=== PATIENT | male | born 1975 | race Hispanic/Latino ===

== ENCOUNTER 2017-05-08 00:52 | Inpatient (IN) | payer OTHER ==
[~2017-05-08] VITALS: Ht 188 cm; Wt 108.4 kg
[~2017-05-08 00:52] MED LIST: NAPROSYN500 M1 PO
--- NOTE | 2017-05-08 00:58 | NUR ---
PT BIBA FROM HOME C/O "METHADONE WITHDRAWAL." PER EMS PT ON METHADONE PROGRAM AND HAS BEEN TRYING TO SELF DETOX X 6 DAYS. PT ALSO REPORTS DRINKING 5-6 NIPS OF ALCOHOL TONIGHT.
--- NOTE | 2017-05-08 00:59 | NUR ---
WANDED BY SECURITY AT THIS TIME
--- NOTE | 2017-05-08 01:32 | NUR ---
AT BEDSIDE TO LUZ MARINA
[2017-05-08 01:34] LABS: HEMATOCRIT 47.5 % (42-52); MEAN CORPUSCULAR HGB 30.9 PG (27.0-31.0); MEAN CORPUSCULAR HGB CONC 35.5 G/DL (33.0-37.0); MEAN CORPUSCULAR VOLUME 87.1 FL (80.0-94.0); MEAN PLATELET VOLUME 7.5 FL (7.4-10.4); PLATELET COUNT 206 /CUMM (130-400); RBC DISTRIBUTION WIDTH 16.2 % (11.5-14.5); RED BLOOD CELL CT 5.45 /CUMM (4.70-6.10); WHITE BLOOD CELL COUNT 5.9 /CUMM (4.8-10.8)
--- NOTE | 2017-05-08 01:39 | ED PSYCHIATRIC COMPLAINT ---
History of Present Illness General Chief Complaint: ETOH/Drug Related Complaint Stated Complaint: WANTS METHADONE DETOX, +ETOH PER EMS Source: patient, old records Exam Limitations: poor historian, intoxication Vital Signs & Intake/Output Vital Signs & Intake/Output Vital Signs Date Time Temp Pulse Resp B/P B/P Pulse O2 O2 Flow FiO2 Mean Ox Delivery Rate 05/08 1213 97.1 108 18 164/80 97 Room Air 05/08 1136 96.8 130 18 163/88 05/08 1134 96.8 130 18 163/88 96 Room Air 05/08 1021 96.7 122 18 168/89 05/08 1019 96.2 130 16 168/89 96 05/08 0831 97.7 110 18 160/104 05/08 0830 97.7 110 18 160/104 95 Room Air 05/08 0602 97.9 112 20 141/84 95 Room Air 05/08 0318 97.8 91 20 146/81 99 Nasal 2.0L Cannula 05/08 0158 Room Air 05/08 0115 97.5 117 20 157/101 94 Room Air Allergies Coded Allergies: venom-honey bee (BEE VENOM (HONEY BEE)) (Severe, THROAT CLOSES 08/21/16) Triage Note: PT BIBA FROM HOME C/O "METHADONE WITHDRAWAL." PER EMS PT ON METHADONE PROGRAM AND HAS BEEN TRYING TO SELF DETOX X 6 DAYS. PT ALSO REPORTS DRINKING 5-6 NIPS OF ALCOHOL TONIGHT. Triage Nurses Notes Reviewed? yes HPI: Patient presents for evaluation of methadone detox. Patient states he has been on methadone for 6 days due to tach pain. It is unclear if he is taking the methadone for treatment of the back pain or the methadone is the result of an addiction to prior pain medications. He states he also has been drinking "a lot " today. History is very limited as the patient tends to nod off to sleep and answers questions incompletely. (GILLES KONG,ESTRELLA Headley) Reconcile Medications Fluoxetine HCl 20 MG CAPSULE 1 CAP PO DAILY MENTAL HEALTH (Reported) Lisdexamfetamine Dimesylate (Vyvanse) 60 MG CAPSULE 1 CAP PO QAM MENTAL HEALTH (Reported) Methadone HCl 10 MG/ML ORAL.CONC 20 MG PO DAILY MAINTENCE (Reported) (LITZY KONG,LENIN) Past History Travel History Traveled to [place] past 21 day No Medical History Any Pertinent Medical History? 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 No (GILLES KONG,ESTRELLA Headley) Review of Systems Review of Systems Constitutional: Reports: no symptoms. EENTM: Reports: no symptoms. Respiratory: Reports: no symptoms. Cardiovascular: Reports: no symptoms. GI: Reports: no symptoms. Genitourinary: Reports: no symptoms. Musculoskeletal: Reports: no symptoms. Skin: Reports: no symptoms. Neurological/Psychological: Reports: no symptoms. Hematologic/Endocrine: Reports: no symptoms. Immunologic/Allergic: Reports: no symptoms. All Other Systems: Reviewed and Negative (GILLES KONG,ESTRELLA Headley) Physical Exam Physical Exam General Appearance: SEE BELOW Neurological/Psychiatric: SEE BELOW Comments: General: Alert, calm, inconsistently cooperative due to somnolence and clinical intoxication Head: Normocephalic, atraumatic Eyes: Normal inspection, pupils midpoint and reactive Ears: Normal inspection Nose: Normal inspection Throat: Moist mucosa Neck: Supple, no goiter Heart: Rapid Regular rate and rhythm, no murmurs rubs or gallops Lungs: Clear to auscultation bilaterally with good air entry Abdomen: Soft nontender nondistended, normal bowel sounds Chest: Nontender Extremities: Normal range of motion grossly, mild tremors present, no cyanosis clubbing or edema of the upper extremities Neurologic: cranial nerves II through XII grossly intact, paucity of speech ( exam limited due to clinical intoxication) Psychiatric: No apparent delusions or hallucinations, no pressured speech or thought blocking (exam limited due to clinical intoxication) SAD PERSONS Done? patient not suicidal (GILLES KONG,ESTRELLA Headley) Progress Differential Diagnosis: drug intoxication, drug overdose Plan of Care: Orders Procedure Date/time Status Regular Diet 05/08 D Active Regular Diet 05/08 B Complete Admit to inpatient 05/08 1206 Active Pathway - chart 05/08 1201 Active Code Status 05/08 1201 Active Patient Data 05/08 1145 Active Pathway - chart 05/08 1059 Active CASE MANAGEMENT CONSULT 05/08 0857 Active CIWA 05/08 0831 Active Patient Safety Monitor 05/08 0145 Active Add-on Test (ER Only) 05/08 0138 Active ETHANOL 05/08 012 Complete URINE DRUG SCREEN FOR ER ONLY 05/08 012 Complete COMPREHENSIVE METABOLIC PANEL 05/08 012 Complete CBC WITHOUT DIFFERENTIAL 05/08 121 Complete House Staff 05/08 UNK Active VTE Mechanical Prophylaxis 05/08 UNK Active Vital Signs 05/08 UNK Active CIWA 05/08 UNK Active SOCIAL WORK CONSULT 05/08 UNK Active Current Medications Sig/Jose Alfredo Start time Last Medication Dose Stop Time Status Admin Lorazepam 1 MG Q12H 05/10 0000 UNVr (Ativan) 05/10 1201 Lorazepam 1.5 MG Q6 05/09 0600 UNVr (Ativan) 05/09 1801 Heparin Sodium 5,000 UNIT Q8 05/08 1400 UNVr (Porcine) Lorazepam 1 MG Q1 PRN 05/08 1219 UNVr (Ativan) Fluoxetine HCl 20 MG DAILY 05/08 1204 UNVr (Prozac) Lorazepam 2 MG Q6 05/08 1200 UNVr 05/08 (Ativan) 05/09 0001 1218 Cyanocobalamin/ 1 BAG DAILY 05/08 1059 UNVr 05/08 Thiamine/Pyridoxine 05/10 1759 1114 (Vitamin in I.V.) Sodium Chloride 1,000 ML (Normal Saline 0.9%) Folic Acid 1 MG DAILY 05/08 1059 UNVr 05/08 (Folic Acid) 05/10 1001 1114 Multivitamins 1 TAB DAILY 05/08 1059 UNVr 05/08 (Theragran Vitamins) 1114 Thiamine HCl 100 MG DAILY 05/08 1059 UNVr 05/08 (Vitamin B1) 05/10 1001 1114 Laboratory Tests 05/08/17 0211: Urine Opiates Screen < 100.00, Methadone Screen > 735 H, Barbiturate Screen < 60, Ur Phencyclidine Scrn < 6.00, Amphetamines Screen < 100, U Benzodiazepines Scrn < 85, Urine Cocaine Screen < 50, Urine Cannabis Screen < 5.00 05/08/17 0125: Anion Gap 14, Estimated GFR > 60, BUN/Creatinine Ratio 14.5, Glucose 112 H, Calcium 8.2 L, Total Bilirubin 2.1 H, AST 526 H, ALT 158 H, Alkaline Phosphatase 193 H, Total Protein 8.6 H, Albumin 3.8, Globulin 4.8 H, Albumin/ Globulin Ratio 0.8 L, CBC w Diff MAN DIFF ORDERED, RBC 5.45, MCV 87.1, MCH 30.9 , RDW 16.2 H, MPV 7.5, Segmented Neutrophils 29 L, Lymphocytes 68 H, Monocytes 3, Platelet Estimate ADEQUATE, Poikilocytosis 2+, PUBS MCHC 35.5, Serum Alcohol 406.0 10:23 AM HEART RATE 116 BPM. PATIENT TREMULOUS. NS, IV ATIVAN ORDERED. 11:01 am patient with visual hallucinations. po ativan ordered. case management paged. 11:20 AM D/W ANA FROM CASE MANAGMENT. APPROVED FOR INPATIENT DETOX. PATIENT TACHYCARDIC, VISUAL HALLUCINATIONS, REQUIRING IV AND PO ATIVAN. (LENIN ORDAZ MD) Comments: 05/08/2017 4:53:09 AM Luis Enrique overall clinical condition has improved. He is currently watching TV and seems to be rather enjoying himself, laughing frequently. 05/08/2017 7:21:42 AM patient signed out to Dr. Ordaz at shift change manager. (GILLES KONG,ESTRELLA Headley) Departure Departure Disposition: STILL A PATIENT Condition: Stable Referrals: PATIENT HAS NO PRIMARY CARE DR (PCP/Family) Departure Forms: Customer Survey General Discharge Information (GILLES KONG,ESTRELLA Headley) Departure Time of Disposition: 1127 Clinical Impression Primary Impression: Alcohol withdrawal delirium Secondary Impressions: Alcohol intoxication, Methadone use disorder, mild Admission Note Spoke With: HAYDEN ARECHIGA MD Documentation of Exam: Documentation of any treatments & extenuating circumstances including Concerns Regarding Discharge (functional status, medication knowledge or non-compliance, living conditions, etc.) that warrant an admission rather than observation: (LENIN ORDAZ MD) Critical Care Note Critical Care Note Critical Care Time: 30-74 min (LENIN ORDAZ MD)
--- NOTE | 2017-05-08 02:03 | NUR ---
NS INFUSING PER EMAR.
--- NOTE | 2017-05-08 02:09 | NUR ---
PT O2 SAT DROPPING TO 89-91% WHILE SLEEPING. PLACED ON 2L NC FOR SUPPORT, 02 SAT IMPROVED TO 98%.
--- NOTE | 2017-05-08 04:16 | NUR ---
PT AWAKE, ALERT AND WATCHING TV. PROVIDED WITH WATER REQUESTED.
--- NOTE | 2017-05-08 05:55 | NUR ---
PT ASSISTED TO USE URINAL. 300CCS OUTPUT.
--- NOTE | 2017-05-08 06:35 | NUR ---
PTS CALLED ADELAIDA AND WOULD LIKE TO BE UPDATED ([phone]) ([phone])
--- NOTE | 2017-05-08 07:33 | NUR ---
PT HAD BREAKFAST NO DISTRESS NOTED
--- NOTE | 2017-05-08 07:39 | NUR ---
PT STATES HE WOULD LIKE DETOX FROM ETOH STATES HE HAS BEEN DRINKING HEAVILY FOR THE PAST MONTH TO TRY AND GET OFF THE METHADONE PT'S CURRENT DOSE IS 20MG DAILY DR. LITZY SHIPLEY PT GIVEN WATER PITCHER PER HIS REQUEST
[2017-05-08] MEDS ORDERED: VYVANSE60 M1 PO (07:57)
[2017-05-08] MEDS ORDERED: FLUOXETINE HCL20 M2 PO (07:57)
[2017-05-08] MEDS ORDERED: METHADONE10 MG/1 M2 PO (07:58)
[2017-05-08 08:31] VITALS: BP 160/104
--- NOTE | 2017-05-08 08:34 | NUR ---
PT RESTING AT THIS TIME
--- NOTE | 2017-05-08 08:41 | NUR ---
SPOKE WITH SPOUSE AWARE OF PROCESS
--- NOTE | 2017-05-08 09:39 | NUR ---
SPOKE WITH APPT. GRADY IN [place] PT WAS LAST SEEN ON March THEY STATE WAS GIVEN TWO BOTTLES OF METHADONE THEN AT 30MG PT TOLD THIS NURSE HE HAS BEEN TRYING TO WEEN HIMSELF OFF OF IT BECAUSE HE IS TIRED OF BEING ON IT. DR. MCGHEE AWARE PT MEDICATED WITH METHATDONE 20MG PER HIS REQUEST
[2017-05-08 10:21] VITALS: BP 168/89
--- NOTE | 2017-05-08 10:29 | NUR ---
PT MEDICATED WITH ATIVAN FLUIDS INFUSING DIRECTED
--- NOTE | 2017-05-08 10:44 | NUR ---
FOOD TRAY ORDERED FOR PT STILL HUNGRY WAS UNABLE TO EAT HIS BREAKFAST
--- NOTE | 2017-05-08 11:00 | NUR ---
PT GIVEN TWO PO ATIVAN PT HALLUCINATING AT THIS TIME ALSO GIVEN FOOD TRAY
--- NOTE | 2017-05-08 11:15 | NUR ---
BANANA BAG INFUSING DIRECTED PT EATING LUNCH TRAY
--- NOTE | 2017-05-08 11:41 | NUR ---
SPOUSE CALLED AND UPDATED ON PT'S ADMISSION
--- NOTE | 2017-05-08 11:59 | History & Physical ---
UL ERNESTINE KONG,[facility] 05/08/17 1159: General Information and HPI MD Statement: I have seen and personally examined MARILYNN TRIANA and documented this H&P. The patient is a 41 year old M who presented with a patient stated chief complaint of [alcohol detox]. Source of Information: patient Exam Limitations: clinical condition History of Present Illness: 41-year-old man with past medical history significant for attention deficit hyperactivity disorder, alcohol dependence, history of depression, history of narcotic dependence on methadone, came to emergency department for alcohol and Methadone detox. Patient was unable to provide the history in detail because of his intoxicated state. According to the patient he was on 45 mg of by mouth methadone but because of his financial constraints he was unable to follow-up with [facility]. Therefore he started cutting down on its methadone on its own and was taking 20 mg. Along with that for the last 2 weeks he also started drinking and he was taking 6 Nips of 100% vodka. Review of system was negative for any acute headaches, acute visual changes, chest pain, shortness of breath, palpitations, nausea, vomiting, abdominal pain, diarrhea, constipation, dysuria, rash, fever, cough, suicidal ideation, depression or bilateral lower extremity edema. U tox is positive for methadone greater than 735 and serum alcohol of 406 Allergies/Medications Allergies: Coded Allergies: venom-honey bee (BEE VENOM (HONEY BEE)) (Severe, THROAT CLOSES 08/21/16) Home Med list Fluoxetine HCl 20 MG CAPSULE 1 CAP PO DAILY MENTAL HEALTH (Reported) Lisdexamfetamine Dimesylate (Vyvanse) 60 MG CAPSULE 1 CAP PO QA MENTAL HEALTH (Reported) Methadone HCl 10 MG/ML ORAL.CONC 20 MG PO DAILY MAINTENCE (Reported) Compliance With Home Meds: FAIR Past History Travel History Traveled to [place] past 21 day No Medical History Neurological: NONE EENT: NONE Cardiovascular: NONE Respiratory: NONE Gastrointestinal: NONE Hepatic: NONE Renal: NONE Musculoskeletal: NONE Psychiatric: NONE Endocrine: NONE Blood Disorders: NONE Cancer(s): 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 Ambulation: independent IADLs Independent: shopping, housework, finances, food prep, telephone, transportation , medication admin. Review of Systems Review of Systems Constitutional: Denies: chills, fever. EENTM: Denies: visual changes. Cardiovascular: Denies: chest pain, palpitations. Respiratory: Denies: cough, short of breath. GI: Denies: abdominal pain, nausea, vomiting. Genitourinary: Denies: dysuria. Musculoskeletal: Denies: back pain. All Other Systems: Reviewed and Negative Exam & Diagnostic Data Last 24 Hrs of Vital Signs/I&O Vital Signs Date Time Temp Pulse Resp B/P B/P Pulse O2 O2 Flow FiO2 Mean Ox Delivery Rate 05/08 1136 96.8 130 18 163/88 05/08 1134 96.8 130 18 163/88 96 Room Air 05/08 1021 96.7 122 18 168/89 05/08 1019 96.2 130 16 168/89 96 05/08 0831 97.7 110 18 160/104 05/08 0830 97.7 110 18 160/104 95 Room Air 05/08 0602 97.9 112 20 141/84 95 Room Air 05/08 0318 97.8 91 20 146/81 99 Nasal 2.0L Cannula 05/08 0158 Room Air 05/08 0115 97.5 117 20 157/101 94 Room Air Intake & Output 05/08 1600 05/08 0800 05/08 0000 Intake Total 0 Output Total 300 Balance -300 Intake, Oral 0 Output, Urine 300 Patient 175 lb Weight Weight Estimated Measurement Method Physical Exam General Appearance Cooperative, No Acute Distress, DROWSY HEENT Atraumatic Neck Supple Cardiovascular Regular Rate, Normal S1, Normal S2 Lungs Clear to Auscultation, Normal Air Movement Abdomen Normal Bowel Sounds, Soft, No Tenderness Neurological Normal Speech, Normal Tone, Sensation Intact Extremities No Edema Last 24 Hrs of Labs/Jeffrey: Laboratory Tests 05/08/17 0211: Urine Opiates Screen < 100.00, Methadone Screen > 735 H, Barbiturate Screen < 60, Ur Phencyclidine Scrn < 6.00, Amphetamines Screen < 100, U Benzodiazepines Scrn < 85, Urine Cocaine Screen < 50, Urine Cannabis Screen < 5.00 05/08/17 0125: Anion Gap 14, Estimated GFR > 60, BUN/Creatinine Ratio 14.5, Glucose 112 H, Calcium 8.2 L, Total Bilirubin 2.1 H, AST 526 H, ALT 158 H, Alkaline Phosphatase 193 H, Total Protein 8.6 H, Albumin 3.8, Globulin 4.8 H, Albumin/ Globulin Ratio 0.8 L, CBC w Diff MAN DIFF ORDERED, RBC 5.45, MCV 87.1, MCH 30.9 , RDW 16.2 H, MPV 7.5, Segmented Neutrophils 29 L, Lymphocytes 68 H, Monocytes 3, Platelet Estimate ADEQUATE, Poikilocytosis 2+, PUBS MCHC 35.5, Serum Alcohol 406.0 Assessment/Plan Assessment: 41-year-old man with past medical history significant for attention deficit hyperactivity disorder, alcohol dependence, history of depression, history of narcotic dependence on methadone, came to emergency department for alcohol and Methadone detox. Patient has about 2 weeks of Alcohol intake, 100% vodka. Symptoms of tremors. Serum Alcohol level 406. No previous history of DT, detox or withdrwal seizures - Admit to Gen Med - Vitals Q Shift - Give PRN IV Ativan. - CIWA Protocol - Banana Bag in D5NS at 75cc per hour - Replete Lytes - Give Multivitamins, B12 and Folate - Psychiatry consult - Social work consult Chronic narcotic dependence on methadone Well confirm the dose from [facility] Patient is on subcutaneous heparin for DVT prophylaxis Patient is full code Patient is on regular diet Patient is on pain management As Ranked By This Provider Problem List: 1. Alcohol intoxication Core Measures/Miscellaneous Acute Coronary Syndrome ACS Diagnosis: No Cerebrovascular Accident CVA/TIA Diagnosis: No Congestive Heart Failure CHF Diagnosis: No VTE (View Protocol) VTE Risk Factors: [facility] prophylaxis d/t: No contraindications No VTE Pharm Prophylaxis d/t: No contraindications VTE Diagnosis: No VTE Type: NONE VTE Confirmed by (Test): NONE Sepsis (View Protocol) Severe Sepsis Present: No Septic Shock Septic Shock Present: No Miscellaneous Documentation Attending Case Discussed With: HAYDEN ARECHIGA MD Primary Care Physician: PATIENT HAS NO PRIMARY CARE DR Patient sees these Specialists Pain management at [facility] Level of Patient Care: General Medicine JERRELL CHURCHILL 05/08/17 1356: Attending Review Statement Attending Statement Attending MD Statement: examined this patient, discuss w/resident/PA/MAIL DISTRIBUTOR, agreed w/resident/PA/MAIL DISTRIBUTOR, discussed with family, reviewed EMR data (avail), discussed with nursing, discussed with case mgmt, reviewed images, amended to note Attending Assessment/Plan: 41 o/m with alcohol abuse comes with alcohol intoxication JE 400s in admission, ativan protocol as per CIWA, clonidine prn for bp control, thiamine . folic acid , Psychiatry consult, Social work consult. gi/dvt prophyalxis full code.
--- NOTE | 2017-05-08 12:58 | NUR ---
PT HAS BED ASSIGNMENT 231-1. RN NOTIFIED.
--- NOTE | 2017-05-08 13:26 | NUR ---
REPORT GIVEN TO FLOOR
[2017-05-08 20:03] VITALS: BP 142/90
[2017-05-09] VITALS: BP 160/80
[2017-05-09 04:00] VITALS: BP 160/100
--- NOTE | 2017-05-09 07:39 | PN- Housestaff ---
SERGEY SINHA MD,IRVIN 05/09/17 0739: Subjective Follow-up For: Alcohol withdrawal Methadone dependence Review of Systems Constitutional: Denies: chills, fever. EENTM: Denies: visual changes. Cardiovascular: Denies: chest pain, palpitations. Respiratory: Denies: cough, short of breath. Gastrointestinal: Denies: abdominal pain, nausea, vomiting. Genitourinary: Denies: discharge. Objective Last 24 Hrs of Vital Signs/I&O Vital Signs Date Time Temp Pulse Resp B/P B/P Pulse O2 O2 Flow FiO2 Mean Ox Delivery Rate 05/09 0400 98.6 116 20 160/100 95 Room Air 05/09 0000 98.6 119 20 160/80 99 Room Air 05/08 2003 98.5 95 19 142/90 93 Room Air 05/08 1329 97.7 97 16 158/83 98 Room Air 05/08 1213 97.1 108 18 164/80 97 Room Air 05/08 1136 96.8 130 18 163/88 05/08 1134 96.8 130 18 163/88 96 Room Air 05/08 1021 96.7 122 18 168/89 05/08 1019 96.2 130 16 168/89 96 05/08 0831 97.7 110 18 160/104 05/08 0830 97.7 110 18 160/104 95 Room Air Intake & Output 05/09 0800 05/09 0000 05/08 1600 Intake Total 700 2000 Output Total 1850 850 Balance -1150 1150 Intake, IV 500 2000 Intake, Oral 200 Output, Urine 1850 850 Patient 240 lb Weight Physical Exam General Appearance: Alert, Oriented X3, Cooperative HEENT: Atraumatic Cardiovascular: Regular Rate, Normal S1, Normal S2, No Murmurs Lungs: Clear to Auscultation, Normal Air Movement Abdomen: Normal Bowel Sounds, Soft, No Tenderness Extremities: No Edema Current Medications: Current Medications Sig/Jose Alfredo Start time Last Medication Dose Route Stop Time Status Admin Acetaminophen 650 MG Q6 PRN 05/08 1600 DC PO Cyanocobalamin/ 1 BAG DAILY 05/08 1059 AC 05/08 Thiamine/Pyridoxine IV 05/10 1759 1114 Sodium Chloride 1,000 ML Fluoxetine HCl 20 MG DAILY 05/08 1204 AC 05/08 PO 1238 Folic Acid 0 .STK-MED ONE 05/08 1109 DC PO Folic Acid 1 MG DAILY 05/08 1059 DC 05/08 PO 05/10 1001 1114 Heparin Sodium 5,000 UNIT Q8 05/08 1400 AC 05/09 (Porcine) SC 0618 Lorazepam 1 MG Q12H 05/10 0000 AC PO 05/10 1201 Lorazepam 1.5 MG Q6 05/09 0600 AC 05/09 PO 05/09 1801 0615 Lorazepam 0 .STK-MED ONE 05/08 1219 DC PO Lorazepam 1 MG Q1 PRN 05/08 1219 AC IV Lorazepam 2 MG Q6 05/08 1200 DC 05/08 PO 05/09 0001 2337 Lorazepam 0 .STK-MED ONE 05/08 1103 DC PO Lorazepam 2 MG ONCE ONE 05/08 1100 DC 05/08 PO 05/08 1101 1101 Lorazepam 2 MG Q2P PRN 05/08 1100 DC IV Lorazepam 1 MG Q2P PRN 05/08 1100 DC IV Lorazepam 0 .STK-MED ONE 05/08 1031 DC .ROUTE Lorazepam 2 MG ONE ONE 05/08 1030 DC 05/08 IV 05/08 1031 1029 Methadone HCl 20 MG ONCE ONE 05/08 0945 DC 05/08 PO 05/08 0946 0959 Methadone HCl 0 .STK-MED ONE 05/08 0944 DC PO Metoprolol Tartrate 5 MG ONCE ONE 05/08 1145 DC 05/08 IV 05/08 1146 1136 Metoprolol Tartrate 0 .STK-MED ONE 05/08 1139 DC IV Morphine Sulfate 1 MG Q6P PRN 05/08 1800 AC IV Multivitamins 0 .STK-MED ONE 05/08 1109 DC PO Multivitamins 1 TAB DAILY 05/08 1059 DC 05/08 PO 1114 Oxycodone HCl 5 MG Q6P PRN 05/08 1800 AC PO Sodium Chloride 1,000 ML BOLUS ONE 05/08 1030 DC 05/08 IV 05/08 1129 1029 Thiamine HCl 0 .STK-MED ONE 05/08 1111 DC .ROUTE Thiamine HCl 0 .STK-MED ONE 05/08 1109 DC PO Thiamine HCl 100 MG DAILY 05/08 1059 DC 05/08 PO 05/10 1001 1114 Last 24 Hrs of Lab/Jeffrey Results Last 24 Hrs of Labs/Mics: Laboratory Tests 05/09/17 0705: Sodium Pending, Potassium Pending, Chloride Pending, Carbon Dioxide Pending, Anion Gap Pending, BUN Pending, Creatinine Pending, BUN/Creatinine Ratio Pending , Magnesium Pending, Total Bilirubin Pending, Direct Bilirubin Pending, AST Pending, ALT Pending, Alkaline Phosphatase Pending, Total Protein Pending, Albumin Pending, CBC w Diff Pending, WBC Pending, RBC Pending, Hgb Pending, Hct Pending, MCV Pending, MCH Pending, RDW Pending, Plt Count Pending, MPV Pending, PUBS MCHC Pending Orders CIWA Score (last 24 hrs): 0, 0, 0 Lines/Diet/Fluids Lines: peripheral lines Restraints: none Assessment/Plan Assessment: 41-year-old man with past medical history significant for attention deficit hyperactivity disorder, alcohol dependence, history of depression, history of narcotic dependence on methadone, came to emergency department for alcohol and Methadone detox. Patient has about 2 weeks of Alcohol intake, 100% vodka. Symptoms of tremors. Serum Alcohol level 406. No previous history of DT, detox or withdrwal seizures - Vitals Q Shift - Give PRN IV Ativan. - CIWA Protocol - Banana Bag in D5NS at 75cc per hour - Replete Lytes - Give Multivitamins, B12 and Folate - Psychiatry consult - Social work consult Chronic narcotic dependence on methadone Confirm the dose from [facility] Patient is on subcutaneous heparin for DVT prophylaxis Patient is full code Patient is on regular diet Patient is on pain management Problem List: 1. Alcohol intoxication 2. Alcohol withdrawal delirium Pain Ratin Pain Location: NA Pain Goal: Pain 4 or less Pain Plan: Continue current pain medications Tomorrow's Labs & Rationales: BEP if electrolyte abnormalities JERRELL CHURCHILL 05/09/17 0916: Attending MD Review Statement Attending Statement Attending MD Statement: examined this patient, discuss w/resident/PA/HOSE TUBING BACKER, agreed w/resident/PA/HOSE TUBING BACKER, discussed with family, reviewed EMR data (avail), discussed with nursing, discussed with case mgmt, reviewed images, amended to note Attending Assessment/Plan: 41 o/m with alcohol abuse comes with alcohol intoxication JE 400s in admission, ativan protocol as per CIWA, clonidine prn for bp control, thiamine . folic acid , Psychiatry consult, Social work consult. gi/dvt prophyalxis full code.
[2017-05-09 08:00] VITALS: BP 160/100
[2017-05-09 08:07] LABS: MEAN CORPUSCULAR VOLUME 86.5 FL (80.0-94.0); PLATELET COUNT 111 /CUMM (130-400); RBC DISTRIBUTION WIDTH 16.4 % (11.5-14.5); WHITE BLOOD CELL COUNT 4.3 /CUMM (4.8-10.8)
[2017-05-09 09:39] LABS: MEAN CORPUSCULAR HGB 28.8 PG (27.0-31.0); MEAN CORPUSCULAR HGB CONC 32.9 G/DL (33.0-37.0)
--- NOTE | 2017-05-09 14:44 | NUR ---
BP 158/110, PULSE 123, DR.UL SINHA NOTIFIED, CLONIDINE GIVEN NOW PER .
[2017-05-09 14:48] VITALS: BP 158/110
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
--- NOTE | 2017-05-09 16:27 | NUR ---
Referral received this am via electronic order filler. The laeks tis a 41 year old man, admitted to the hospital at noontime yesterday. Patient admitted for alcohol and methadone detox. Patient had been participating in a methadone program at [facility] in [place], but was struggling with transportation there as logisticare had him using public transportation and it was a 4 hour block of time to and from. He lost his priviledges and needed to start going every day....Spoke with patients this am who reports that patient had an appointment at a suboxone provider in [place] (either today or yesterday). I encouraged her to call that provider and reschedule appointment since our suboxone IOP is closed. Social work to follow and meet with patient and assist with appropriate discharge planning.
[2017-05-09 18:00] VITALS: BP 138/60
[2017-05-09 22:00] VITALS: BP 142/90
--- NOTE | 2017-05-09 23:04 | NUR ---
LATE ENTRY FOR 1999: PT STATING THAT HE WISHES TO GO HOME, ON THE PHONE WITH HIS AT THIS TIME, HANDED THIS NURSE THE PHONE. ASKING THIS NURSE ABOUT PT'S DOSE OF METHADONE "WHY WASNT IT GIVEN TODAY? HE GOT 20 MG YESTERDAY AND SHOULD BE GETTING SOME TODAY"- INFORMED THAT I WOULD SPEAK TO THE CLASSIFIER OPERATOR REGARDING THIS - CALL PLACED TO CLASSIFIER OPERATOR LENORE, WHO STATED THAT PLAN IS TO HOLD METHADONE FOR TODAY. CLASSIFIER OPERATOR AND MOD UP TO SPEAK TO PT AND AT THIS TIME REGARDING PLAN OF CARE. PT STATING " I AM ANXIOUS AND I JUST WANT TO BE HOME WITH MY KIDS" AFTER GOING OVER PLAN TO STAY IN HOSPITAL, FOLLOW ATIVAN TAPER AND CIWA, PT APPEARED MORE CALM AND AGREED TO STAY. ATIVAN IV GIVEN PER CIWA. BED ALARM REMAINS IN PLACE. SAFETY PRECAUTIONS MAINTAINED. AT THIS TIME PT IS NOT PAPERED, BUT IF PT BEGINS TO STATE THAT HE WANTS TO LEAVE AMA, CALL SHOULD BE PLACED TO PSYCH TO DETERMINE IF PT CAN LEAVE AMA OR NOT.
--- NOTE | 2017-05-09 23:08 | NUR ---
CALL PLACED TO GENERAL MAINTENANCE TECHNICIAN AT THIS TIME FOR OFFICE SUPPORT ASSISTANT ORDER, PT CONTINUES TO ATTEMPT OOB AND IS HIGH FALL RISK. BED ALARM IN PLACE. ATIVAN GIVEN PER CIWA.
[2017-05-10] VITALS (10 sets, daily range): BP systolic 140–166; BP diastolic 86–110
[2017-05-10 07:58] LABS: HEMATOCRIT 38.4 % (42-52); MEAN CORPUSCULAR HGB 29.8 PG (27.0-31.0); MEAN CORPUSCULAR HGB CONC 34.3 G/DL (33.0-37.0); MEAN CORPUSCULAR VOLUME 86.8 FL (80.0-94.0); MEAN PLATELET VOLUME 9.7 FL (7.4-10.4); PLATELET COUNT 90 /CUMM (130-400); RED BLOOD CELL CT 4.42 /CUMM (4.70-6.10); WHITE BLOOD CELL COUNT 4.2 /CUMM (4.8-10.8)
--- NOTE | 2017-05-10 08:00 | PN- Housestaff ---
SERGEY SINHA MD,IRVIN 05/10/17 0800: Subjective Follow-up For: Alcohol withdrawal Methadone dependence Complaints: no complaints Subjective: Patient wanted to leave AGAINST MEDICAL ADVICE overnight as he demanded that his methadone dose should be given to him. Overnight. Spoke with patient's and convinced him to stay. Review of Systems Constitutional: Denies: chills, fever. EENTM: Denies: visual changes. Cardiovascular: Denies: chest pain, palpitations. Respiratory: Denies: cough, short of breath. Gastrointestinal: Denies: abdominal pain, nausea, vomiting. Genitourinary: Denies: discharge. Neurological/Psychological: Reports: tremors. Objective Last 24 Hrs of Vital Signs/I&O Vital Signs Date Time Temp Pulse Resp B/P B/P Pulse O2 O2 Flow FiO2 Mean Ox Delivery Rate 05/10 0602 98.1 94 16 158/96 99 Room Air 05/10 0347 97.9 92 14 150/100 96 Room Air 05/10 0340 92 150/100 05/10 0240 118 164/104 05/10 0228 97.9 116 14 164/104 98 Room Air 05/09 2200 98.2 117 22 142/90 97 Room Air 05/09 1800 98.5 105 22 138/60 95 Room Air 05/09 1448 97.5 100 22 158/110 96 05/09 1435 123 158/110 05/09 1049 116 160/100 Intake & Output 05/10 1600 05/10 0800 05/10 0000 Intake Total 1000 900 Output Total 1300 1100 Balance -300 -200 Intake, IV 900 Intake, Oral 1000 Output, Urine 1300 1100 Physical Exam General Appearance: Alert, Oriented X3, Cooperative, No Acute Distress HEENT: Atraumatic Cardiovascular: Regular Rate, Normal S1, Normal S2, No Murmurs Lungs: Clear to Auscultation, Normal Air Movement Abdomen: Normal Bowel Sounds, Soft, No Tenderness Neurological: Normal Speech, Normal Tone, Sensation Intact Extremities: No Edema Current Medications: Current Medications Sig/Jose Alfredo Start time Last Medication Dose Route Stop Time Status Admin Baclofen 10 MG TID PRN 05/09 1615 AC PO Clonidine 0.1 MG TID 05/09 1000 AC 05/09 PO 2048 Cyanocobalamin/ 1 BAG DAILY 05/08 1059 AC 05/09 Thiamine/Pyridoxine IV 05/10 1759 0836 Sodium Chloride 1,000 ML Dicyclomine HCl 20 MG 4 TIMES/DAY PRN 05/09 1615 AC PO Fluoxetine HCl 20 MG DAILY 05/08 1204 AC 05/09 PO 0836 Heparin Sodium 5,000 UNIT Q8 05/08 1400 AC 05/10 (Porcine) SC 0601 Ibuprofen 600 MG Q6P PRN 05/09 1615 AC PO Lorazepam 1 MG Q12H 05/10 0000 DC PO 05/10 1201 Lorazepam 2 MG Q6 05/09 2359 AC 05/10 PO 05/10 1201 0600 Lorazepam 0 Q1P PRN 05/09 2015 AC 05/10 IV 0247 Lorazepam 1.5 MG Q6 05/09 0600 DC 05/09 PO 05/09 1801 1648 Lorazepam 1 MG Q1 PRN 05/08 1219 DC 05/09 IV 2016 Methylphenidate HCl 10 MG TID 05/09 1011 AC 05/09 PO 2048 Morphine Sulfate 1 MG Q6P PRN 05/08 1800 DC IV Oxycodone HCl 5 MG Q6P PRN 05/08 1800 DC PO Last 24 Hrs of Lab/Jeffrey Results Last 24 Hrs of Labs/Mics: Laboratory Tests 05/10/17 0615: Sodium Pending, Potassium Pending, Chloride Pending, Carbon Dioxide Pending, Anion Gap Pending, BUN Pending, Creatinine Pending, BUN/Creatinine Ratio Pending , Total Bilirubin Pending, Direct Bilirubin Pending, AST Pending, ALT Pending, Alkaline Phosphatase Pending, Total Protein Pending, Albumin Pending, CBC w Diff Pending, WBC Pending, RBC Pending, Hgb Pending, Hct Pending, MCV Pending, MCH Pending, RDW Pending, Plt Count Pending, MPV Pending, PUBS MCHC Pending Orders CIWA Score (last 24 hrs): Highest CIWA scores of 12 and 13 overnight Lines/Diet/Fluids Lines: peripheral lines Restraints: none Assessment/Plan Assessment: 41-year-old man with past medical history significant for attention deficit hyperactivity disorder, alcohol dependence, history of depression, history of narcotic dependence on methadone, came to emergency department for alcohol and Methadone detox. Patient has about 2 weeks of Alcohol intake, 100% vodka. Symptoms of tremors. Serum Alcohol level 406. No previous history of DT, detox or withdrwal seizures - Vitals Q Shift - Give PRN IV Ativan, and scheduled by mouth Ativan patient received around 8 mg of Ativan overnight - CIWA Protocol showed higher CIWA scores of 11, 12 and 13 - Banana Bag in D5NS at 75cc per hour and be discontinued - Replete Lytes - Give Multivitamins, B12 and Folate - Psychiatry consult - Social work consult Chronic narcotic dependence on methadone Confirm the dose from [facility] Transaminitis Likely secondary to alcohol intake We will follow-up LFTs this morning Patient is on subcutaneous heparin for DVT prophylaxis Patient is full code Patient is on regular diet Patient is on pain management Problem List: 1. Alcohol withdrawal delirium 2. Methadone use disorder, mild 3. Alcohol intoxication Pain Ratin Pain Location: NA Pain Goal: Pain 4 or less Pain Plan: Continue with current pain management Tomorrow's Labs & Rationales: BEP for electrolytes CBC for anemia KERLINE,JERRELL 05/10/17 0910: Attending MD Review Statement Attending Statement Attending MD Statement: examined this patient, discuss w/resident/PA/K9 HANDLER, agreed w/resident/PA/K9 HANDLER, discussed with family, reviewed EMR data (avail), discussed with nursing, discussed with case mgmt, reviewed images, amended to note Attending Assessment/Plan: 41 o/m with alcohol abuse comes with alcohol intoxication JE 400s in admission, ativan protocol as per CIWA, clonidine prn for bp control, thiamine . folic acid , Psychiatry consult, Social work consult. gi/dvt prophyalxis full code. wants to leave against medical advice. explained risks/beneifts of present medical management
--- NOTE | 2017-05-10 10:31 | Patient Discharge Instructions ---
Discharge Instructions General Discharge Information You were seen/treated for: Alcohol withdrawal Methadone dependence Special Instructions: Follow-up with primary care doctor in a week after discharge. Follow-up with [facility] for methadone dependence management Follow up CBC in 2 weeks after discharge Diet Continue normal diet: Yes Activity Full Activity/No Limits: Yes Acute Coronary Syndrome Inclusion Criteria At DC or during hospital stay patient has or had the following: ACS DIAGNOSIS No Discharge Core Measures Meds if any: Prescribed or Continued at Discharge Meds if any: NOT Prescribed or Continued at Discharge Congestive Heart Failure Inclusion Criteria At DC or during hospital stay patient has or had the following: CHF DIAGNOSIS No Discharge Core Measures Meds if any: Prescribed or Continued at Discharge Meds if any: NOT Prescribed or Continued at Discharge Cerebrovascular accident Inclusion Criteria At DC or during hospital stay patient has or had the following: CVA/TIA Diagnosis No Discharge Core Measures Meds if any: Prescribed or Continued at Discharge Meds if any: NOT Prescribed or Continued at Discharge Venous thromboembolism Inclusion Criteria VTE Diagnosis No VTE Type NONE VTE Confirmed by (Test) NONE Discharge Core Measures - Per Current guidelines, there needs to be overlap - treatment for the first 5 days of Warfarin therapy. - If discharged on Warfarin prior to 5 days of - overlap therapy, the patient will need to be - assessed for post discharge needs including - *Post discharge parental anticoagulation - *Warfarin and/or parental anticoagulation education - *Follow up date to check INR post discharge At least 5 days overlap therapy as Inpatient No Meds if any: Prescribed or Continued at Discharge Note: Overlap Therapy is Warfarin and Anticoagulant Meds if any: NOT Prescribed or Continued at Discharge
--- NOTE | 2017-05-10 17:15 | NUR ---
sw into see pt regarding followup care,, gomez signed for [facility] for info regarding the possibility of methadone change to soboxone and what available resources pt might have if he reamins on methadone but [facility]. Pt not yet clear about what he wants to do for after care. Pt uncomfortable and unity, Rn assess CIWA and pain and giving meds. Also collborated with MICHAEL Landers on Pt needs. Pt had a diffculty night and today seemed to be anxious restless and responding to internal stimuli. sw to follow up.
--- NOTE | 2017-05-10 22:25 | NUR ---
PT ASKED IF MD WOULD ORDER HIS METHADONE. DR. LENORE KING #[id number] MADE AWARE PT WAS ASKING AND STATED HE TAKES AT HOME.
[2017-05-11] VITALS (7 sets, daily range): BP systolic 138–154; BP diastolic 90–100
--- NOTE | 2017-05-11 06:47 | PN- Housestaff ---
SERGEY SINHA MD,[facility] 05/11/17 0647: Subjective Follow-up For: Alcohol withdrawal Methadone dependence Complaints: no complaints Subjective: Patient did not have any acute shortness of breath or chest pain overnight. Review of Systems Constitutional: Denies: chills, fever. EENTM: Denies: visual changes. Cardiovascular: Denies: chest pain, palpitations. Respiratory: Denies: cough, short of breath. Gastrointestinal: Denies: abdominal pain, nausea, vomiting. Genitourinary: Denies: dysuria. Musculoskeletal: Denies: back pain. Objective Last 24 Hrs of Vital Signs/I&O Vital Signs Date Time Temp Pulse Resp B/P B/P Pulse O2 O2 Flow FiO2 Mean Ox Delivery Rate 05/11 0608 97.6 72 20 144/100 99 Room Air 05/10 2213 94 142/88 05/10 2200 96.7 98 20 140/86 96 Room Air 05/10 1800 97.9 96 20 142/90 97 Room Air 05/10 1625 79 130/60 05/10 1404 97.8 103 20 158/104 96 05/10 1338 103 158/104 05/10 0852 97.4 92 18 166/110 05/10 0800 97.4 92 16 166/110 Intake & Output 05/11 0800 05/11 0000 05/10 1600 Intake Total 240 1470 Output Total 1150 3100 Balance -910 -1630 Intake, IV 750 Intake, Oral 240 720 Output, Urine 1150 3100 Physical Exam General Appearance: Alert, Oriented X3, Cooperative HEENT: Atraumatic Neck: No JVD Cardiovascular: Regular Rate, Normal S1, Normal S2 Lungs: Clear to Auscultation, Normal Air Movement Abdomen: Normal Bowel Sounds, Soft, No Tenderness Neurological: Normal Speech, Normal Tone, Sensation Intact Extremities: No Edema Current Medications: Current Medications Sig/Jose Alfredo Start time Last Medication Dose Route Stop Time Status Admin Baclofen 10 MG TID PRN 05/09 1615 AC 05/10 PO 1027 Clonidine 0.1 MG TID 05/09 1000 AC 05/10 PO 2213 Cyanocobalamin/ 1 BAG DAILY 05/08 1059 DC 05/10 Thiamine/Pyridoxine IV 05/10 1759 0820 Sodium Chloride 1,000 ML Dicyclomine HCl 20 MG 4 TIMES/DAY PRN 05/09 1615 AC PO Fluoxetine HCl 20 MG DAILY 05/08 1204 AC 05/10 PO 0852 Heparin Sodium 5,000 UNIT Q8 05/08 1400 AC 05/11 (Porcine) SC 0555 Ibuprofen 600 MG Q6P PRN 05/09 1615 AC 05/10 PO 1024 Lorazepam 2 MG Q6 05/09 2359 DC 05/10 PO 05/10 1201 1221 Lorazepam 0 Q1P PRN 05/09 2015 AC 05/11 IV 0033 Melatonin 5 MG ONCE ONE 05/10 2230 DC 05/11 PO 05/10 2231 0033 Methylphenidate HCl 10 MG TID 05/09 1011 AC 05/10 PO 2213 Orders CIWA Score (last 24 hrs): Maximum CIWA score of 10 overnight Lines/Diet/Fluids Lines: peripheral lines Restraints: none Assessment/Plan Assessment: 41-year-old man with past medical history significant for attention deficit hyperactivity disorder, alcohol dependence, history of depression, history of narcotic dependence on methadone, came to emergency department for alcohol and Methadone detox. Patient has about 2 weeks of Alcohol intake, 100% vodka. Symptoms of tremors. Serum Alcohol level 406. No previous history of DT, detox or withdrwal seizures - Vitals Q Shift - Give PRN IV Ativan, and scheduled by mouth Ativan patient received around 8 mg of Ativan overnight - CIWA Protocol showed highest CIWA scores of 10 - Banana Bag in D5NS discontinued - Replete Lytes - Give Multivitamins, B12 and Folate - Psychiatry consult - Social work consult Chronic narcotic dependence on methadone Spoke with patient and patient's at length about inpatient methadone detox. Patient has been trying to detox himself buying methadone off the streets. After discussing with psychiatry was decided that we will hold off on methadone inpatient given patient's high risk and noncompliance. Transaminitis Secondary to alcohol intake. Patient counseled about effects of alcohol Patient is on subcutaneous heparin for DVT prophylaxis Patient is full code Patient is on regular diet Patient is on pain management Problem List: 1. Alcohol withdrawal delirium 2. Methadone use disorder, mild Pain Ratin Pain Location: NA Pain Goal: Pain 4 or less Pain Plan: Continue current pain medications Tomorrow's Labs & Rationales: None JERRELL CHURCHILL 05/11/17 0945: Attending MD Review Statement Attending Statement Attending MD Statement: examined this patient, discuss w/resident/PA/SUPERVISOR ENGINES ROAD, agreed w/resident/PA/SUPERVISOR ENGINES ROAD, discussed with family, reviewed EMR data (avail), discussed with nursing, discussed with case mgmt, reviewed images, amended to note Attending Assessment/Plan: 41 o/m with alcohol abuse comes with alcohol intoxication JE 400s in admission, ativan protocol as per CIWA, clonidine prn for bp control, thiamine . folic acid , Psychiatry consult, Social work consulted. gi/dvt prophyalxis full code. Patient clincally better. Patient asking for methdaone. f/u o/p PCP. anticipate d/c over weekend
--- NOTE | 2017-05-11 10:36 | NUR ---
Sw to pt room, Pt presenting with brighter affect, calmer and more comfortable then yesterday. He has a more postive outlook. He continues to think about whether he wants soboxone treatment or another out pt treatment. Pt thinking about how he needs to work. Pt thinking about transportation issues to treatment and is not interested in travel muliptle times a week on bus for hours at a time. Pt reports this is why [facility] ended up not working. Sw discussed that many program ask for attendance multiple times a week, least at induction. Pt reprots his is looking into treatment for him. Pt's spouse did not visit yesterday but he reports she will be in today around 5 pm, maybe with the 3 young girls. Education and discussion about how soboxone might help pt stay clean and he may need that help. Pt verbalizing ETOH adds to his risk of relapse on opiates. Sw available upon request. sw to try and connect with spouse. and more postive outlook. Pt
--- NOTE | 2017-05-11 15:15 | NUR ---
Spoke with patient this am who gave verbal permission to worker to speak with Simin. Call placed to Simin who reports that cancelled appointment from Sunday was to be at [facility] here in [place], and she was able to reschedule it for next week. Both patient and pleased with rescheduled appointment and location. Please call if other social work needs arise.
[2017-05-12] VITALS (8 sets, daily range): BP systolic 125–140; BP diastolic 80–98
--- NOTE | 2017-05-12 01:30 | Discharge Summary ---
Visit Information Visit Dates Admission Date: 05/08/17 Discharge Date: 05/13/17 Hospital Course Course Attending Physician: JERRELL CHURCHILL MD Primary Care Physician: PATIENT HAS NO PRIMARY CARE DR Hospital Course: 41-year-old man with past medical history significant for attention deficit hyperactivity disorder, alcohol dependence, history of depression, history of narcotic dependence on methadone, came to emergency department for alcohol and Methadone detox. According to the patient because of his financial and transport issues he was not able to follow-up with [facility] where he was getting his methadone 45 mg daily. For the last 2 weeks he has been buying methadone off the streets and trying to self taper by taking 20 mg of methadone. Since he was not successful in tapering methadone he started drinking. For the last 2 weeks he has been drinking 5-6 NIPS of 100% vodka. He denied any previous admissions with alcohol withdrawal and provided no history of DTs or withdrawal seizures. Vitals in emergency department patient afebrile, tachycardic with heart rate ranging from 91 to 130, no tachypnea, systolic blood pressure ranging from 141- 163 and diastolic 81-104, oxygen saturation of 94-96% on room air. On examination patient was somnolent and drowsy, regular rhythm, S1 and S2 audible without any murmurs, lungs clear to auscultation, normal abdominal bowel sounds, no tenderness, grossly intact neurological examination and no bilateral lower extremity edema. Labs on admission were significant for mild hyperkalemia 5.9, AST of 526, ALT of 158, hemoglobin of 16.9 and hematocrit of 47.5. U tox positive for methadone greater than 735, serum alcohol level of 406. Patient was admitted on general medicine floor for the management of following problems Alcohol dependence/withdrawal Given his significant alcohol blood levels of 406, Patient was initially started on banana bag, PRN IV Ativan as per CIWA protocol, and scheduled by mouth Ativan patient received around the clock. Patient CIWA score fluctuated from 0-10 initially for the first few nights and became stable in the range of 0-1 after that. Banana bag was discontinued and patient was give Multivitamins, B12 and Folate. Psychiatry and child protective services social worker also consulted to provide help with intensive outpatient management and future resources to prevent further alcohol dependence. Chronic narcotic dependence on methadone Patient wanted in patient hospital methadone taper. We spoke with patient and patient's at length about inpatient methadone detox. Patient has been trying to detox himself buying methadone off the streets. After discussing with psychiatry it was decided that we will hold off on methadone inpatient given patient's high risk and noncompliance. Transaminitis Secondary to alcohol intake. Patient counseled about effects of alcohol History of ADHD Patient's home medication was substituted with methylphenidate 10 mg 3 times a day during hospitalization Pancytopenia Likely transient mild myelosuppression secondary to alcohol intake. Heparin subcutaneous was discontinued. Patient remained afebrile througout hospitalization. Alps for DVT prophylaxis. Follow up CBC as an outpatient. Patient was on ALPS for DVT prophylaxis Patient was full code Patient was on regular diet Patient was on pain management with NSAIDS Allergies: Coded Allergies: venom-honey bee (BEE VENOM (HONEY BEE)) (Severe, THROAT CLOSES 08/21/16) Disposition Summary Disposition Principal Diagnosis: Alcohol withdrawl/dependence Methadone withdrawl/dependence Alcoholic Transaminitis Transient Pancytopenia Additional Diagnosis: H/O ADHD H/O Depression Discharge Disposition: home or self care Discharge Instructions General Discharge Information Code Status: Full Code Patient's Diet: Regualr Diet Patient's Activity: As tolerated Follow-Up Instructions/Appts: Follow-up with primary care doctor in a week after discharge. Follow-up with [facility] for methadone dependence management Follow up CBC in 2 weeks after discharge Medications at Discharge Discharge Medications: Stop taking the following medications: Methadone HCl (Methadone HCl) 10 MG/ML ORAL.CONC ORAL DAILY Continue taking these medications: Lisdexamfetamine Dimesylate (Vyvanse) 60 MG CAPSULE 1 Capsule ORAL Every Morning Qty = 30 Instructions: NOT GIVEN IN HOSPITAL Fluoxetine HCl (Fluoxetine HCl) 20 MG CAPSULE 1 Capsule ORAL DAILY Qty = 30 Comments: Last Taken: 05/13/17 Time: 8:15 AM Start taking the following new medications: Folic Acid (Folic Acid) 1 MG TABLET 1 Milligram ORAL DAILY Qty = 60 No Refills Instructions: . Comments: Last Taken: 05/13/17 Time: 8:15 AM Thiamine HCl (Vitamin B-1) 100 MG TABLET 100 Milligram ORAL DAILY Qty = 60 No Refills Instructions: . Comments: Last Taken: 05/13/17 Time: 8:15 AM Multivitamin (One Daily Multivitamin) 1 EACH TABLET 1 Tablet ORAL DAILY Qty = 60 No Refills Instructions: . Comments: Last Taken: 05/13/17 Time: 8:15 AM Fluoxetine HCl (Fluoxetine HCl) 20 MG CAPSULE 1 Capsule ORAL DAILY Qty = 3 No Refills Lisdexamfetamine Dimesylate (Vyvanse) 60 MG CAPSULE 1 Capsule ORAL Every Morning Qty = 3 No Refills Copies To: JERRELL CHURCHILL MD
[2017-05-12] MEDS ORDERED: VITAMIN B-1100 MG PO (01:48)
[2017-05-12] MEDS ORDERED: ONE DAILY MULT1 EAC2 PO (01:48)
[2017-05-12] MEDS ORDERED: FOLIC ACID1 M1 PO (01:48)
--- NOTE | 2017-05-12 05:59 | PN- Housestaff ---
SERGEY SINHA MD,IRVIN 05/12/17 0559: Subjective Follow-up For: Alcohol withdrawal Methadone dependence Complaints: no complaints Subjective: Patient remained afebrile overnight. CIWA scores have been 0, 0 ,0 overnight. Review of Systems Constitutional: Denies: chills, fever. EENTM: Denies: visual changes. Cardiovascular: Denies: chest pain, palpitations. Respiratory: Denies: cough, short of breath. Gastrointestinal: Denies: abdominal pain, nausea, vomiting. Genitourinary: Denies: discharge. Objective Last 24 Hrs of Vital Signs/I&O Vital Signs Date Time Temp Pulse Resp B/P B/P Pulse O2 O2 Flow FiO2 Mean Ox Delivery Rate 05/12 0208 98.2 81 20 137/98 100 Room Air 05/12 0200 98.2 81 20 137/98 05/11 2241 74 154/92 05/11 2200 98.2 74 20 154/92 05/11 2145 98.2 74 20 154/92 99 Room Air 05/11 1731 97.5 72 18 138/90 97 Room Air 05/11 1600 99 18 140/90 05/11 1543 99 140/90 05/11 1506 99.0 109 20 150/98 95 05/11 0937 86 142/100 05/11 0800 97.6 72 20 144/100 05/11 0608 97.6 72 20 144/100 99 Room Air Intake & Output 05/12 0800 05/12 0000 05/11 1600 Intake Total 500 1100 Output Total Balance 500 1100 Intake, IV 20 Intake, Oral 480 1100 Physical Exam General Appearance: Oriented X3, Cooperative, No Acute Distress HEENT: Atraumatic Neck: No JVD Cardiovascular: Regular Rate, Normal S1, Normal S2, No Murmurs Lungs: Clear to Auscultation, Normal Air Movement Abdomen: Normal Bowel Sounds, Soft, No Tenderness Neurological: Normal Speech, Normal Tone, Sensation Intact Extremities: No Edema Current Medications: Current Medications Sig/Jose Alfredo Start time Last Medication Dose Route Stop Time Status Admin Baclofen 10 MG TID PRN 05/09 1615 AC 05/12 PO 0410 Clonidine 0.1 MG TID 05/09 1000 AC 05/11 PO 2241 Dicyclomine HCl 20 MG 4 TIMES/DAY PRN 05/09 1615 AC PO Fluoxetine HCl 20 MG DAILY 05/08 1204 AC 05/11 PO 0936 Folic Acid 1 MG DAILY 05/11 1000 AC 05/11 PO 0936 Heparin Sodium 5,000 UNIT Q8 05/08 1400 AC 05/12 (Porcine) SC 0547 Ibuprofen 600 MG Q6P PRN 05/09 1615 AC 05/10 PO 1024 Lorazepam 1.5 MG Q8 05/12 0600 AC 05/12 PO 0547 Lorazepam 0.5 MG .STK-MED ONE 05/11 1333 DC PO 05/11 1334 Lorazepam 1.5 MG FOUR TIMES A DAY 05/11 1000 DC 05/11 PO 2240 Lorazepam 0.5 MG .STK-MED ONE 05/11 0931 DC PO 05/11 0932 Lorazepam 0 Q1P PRN 05/09 2015 AC 05/11 IV 0033 Methylphenidate HCl 10 MG TID 05/09 1011 AC 05/11 PO 2241 Multivitamins 1 TAB DAILY 05/11 1000 AC 05/11 PO 0936 Thiamine HCl 100 MG DAILY 05/11 1000 AC 05/11 PO 0936 Orders CIWA Score (last 24 hrs): 0, 0, 0, 0 Lines/Diet/Fluids Lines: peripheral lines Restraints: none Assessment/Plan Assessment: 41-year-old man with past medical history significant for attention deficit hyperactivity disorder, alcohol dependence, history of depression, history of narcotic dependence on methadone, came to emergency department for alcohol and Methadone detox. Patient has about 2 weeks of Alcohol intake, 100% vodka. Symptoms of tremors. Serum Alcohol level 406. No previous history of DT, detox or withdrwal seizures - Vitals Q Shift - Give PRN IV Ativan, and scheduled by mouth Ativan patient received around 8 mg of Ativan overnight - CIWA Protocol showed highest CIWA scores of 0, 0,0 ,0 - Banana Bag in D5NS discontinued - Replete Lytes - Give Multivitamins, B12 and Folate - Psychiatry consult - Social work consult Chronic narcotic dependence on methadone Spoke with patient and patient's at length about inpatient methadone detox. Patient has been trying to detox himself buying methadone off the streets. After discussing with psychiatry was decided that we will hold off on methadone inpatient given patient's high risk and noncompliance. Transaminitis Secondary to alcohol intake. Patient counseled about effects of alcohol Pancytopenia Likely transient mild myelosuppression secondary to alcohol intake. Heparin subcutaneous and be discontinued. Alps for DVT prophylaxis Patient is on subcutaneous heparin for DVT prophylaxis Patient is full code Patient is on regular diet Patient is on pain management Problem List: 1. Methadone use disorder, mild 2. Alcohol withdrawal delirium 3. Alcohol intoxication Pain Ratin Pain Location: NA Pain Goal: Pain 4 or less Pain Plan: Continue current pain management Tomorrow's Labs & Rationales: CBC for anemia and pancytopenia DVT/Prophylaxis: mechanical KERLINEJERRELL 05/12/17 1249: Attending MD Review Statement Attending Statement Attending MD Statement: examined this patient, discuss w/resident/PA/COMPANY TRUCK DRIVER, agreed w/resident/PA/COMPANY TRUCK DRIVER, discussed with family, reviewed EMR data (avail), discussed with nursing, discussed with case mgmt, reviewed images, amended to note Attending Assessment/Plan: 41 o/m with alcohol abuse comes with alcohol intoxication JE 400s in admission, ativan protocol as per CIWA, clonidine prn for bp control, thiamine . folic acid , Psychiatry consult, Social work consulted. gi/dvt prophyalxis full code. Patient clincally better. Patient asking for methdaone. f/u o/p PCP. anticipate d/c over weekend
[2017-05-12 08:12] LABS: ABSOLUTE EOSINOPHIL COUNT 0.2 /CUMM (0.0-0.7); ABSOLUTE MONOCYTE COUNT 0.4 /CUMM (0.10-0.60); PLATELET COUNT 117 /CUMM (130-400); RBC DISTRIBUTION WIDTH 15.9 % (11.5-14.5)
[2017-05-12 08:41] LABS: ABSOLUTE BASOPHIL COUNT 0 /CUMM (0.0-0.2); ABSOLUTE GRANULOCYTE CT 3.3 /CUMM (1.4-6.5); ABSOLUTE LYMPH COUNT 2.5 /CUMM (1.2-3.4); BASOPHIL % 0.4 % (0.0-2.0); EOSINOPHIL % 3.6 % (0-5); GRANULOCYTE % 51.6 % (42.2-75.2); MEAN CORPUSCULAR HGB CONC 33.1 G/DL (33.0-37.0); MEAN CORPUSCULAR VOLUME 87.6 FL (80.0-94.0); MEAN PLATELET VOLUME 9.2 FL (7.4-10.4); RED BLOOD CELL CT 4.56 /CUMM (4.70-6.10)
[2017-05-12 08:46] LABS: WHITE BLOOD CELL COUNT 6.5 /CUMM (4.8-10.8)
--- NOTE | 2017-05-12 23:50 | NUR ---
TERESA TOLD THIS RN THAT SHE THOUGHT PT WAS MAKING HIMSELF THROW UP IN BATHROOM. [employer] STOCK CLERK AVI NOTIFIED. PT TO BE CLOSELY MONITORED WHEN IN BATHROOM FOR LONG PERIODS OF TIME. REPORT PASSED TO NEXT SHIFT RN.
[2017-05-13] VITALS: BP 140/80
[2017-05-13 04:00] VITALS: BP 140/80
--- NOTE | 2017-05-13 07:24 | PN- Housestaff ---
CAROLINE KONG,[facility] 05/13/17 0724: Subjective Follow-up For: Detox Subjective: Mr. Velazquez was seen and examined this morning. Resting comfortably in bed. Denies any issues overnight. Does state that he experienced night tremors owing to his medication taper. Denies any fever, chills, nausea, vomiting. Patient is currently pain-free. Eager to be discharged. Review of Systems Constitutional: Reports: see HPI. Objective Last 24 Hrs of Vital Signs/I&O Vital Signs Date Time Temp Pulse Resp B/P B/P Pulse O2 O2 Flow FiO2 Mean Ox Delivery Rate 05/13 0814 87 164/94 05/13 0800 97.7 87 18 164/94 05/13 0800 97.7 87 18 164/94 98 Room Air 05/13 0400 97.0 76 18 140/80 05/13 0000 98.5 78 20 140/80 05/12 2233 98.5 92 18 130/90 97 Room Air 05/12 2112 92 130/90 05/12 1542 79 132/90 05/12 1430 98.8 90 20 140/90 96 05/12 1000 98.9 80 20 125/80 96 05/12 0921 75 140/90 Intake & Output 05/13 1600 05/13 0800 05/13 0000 Intake Total 120 800 Output Total Balance 120 800 Intake, Oral 120 800 Physical Exam General Appearance: Alert, Oriented X3, Cooperative Cardiovascular: Regular Rate, Normal S1, Normal S2 Lungs: Clear to Auscultation Abdomen: Normal Bowel Sounds, Soft, No Tenderness Neurological: Normal Speech, Strength at 5/5 X4 Ext Extremities: No Edema Current Medications: Current Medications Sig/Jose Alfredo Start time Last Medication Dose Route Stop Time Status Admin Baclofen 10 MG TID PRN 05/09 161 AC 05/13 PO 0038 Clonidine 0.1 MG TID 05/09 1000 AC 05/13 PO 0814 Dicyclomine HCl 20 MG 4 TIMES/DAY PRN 05/09 1615 AC 05/12 PO 1829 Fluoxetine HCl 20 MG DAILY 05/08 1204 AC 05/13 PO 0815 Folic Acid 1 MG DAILY 05/11 1000 AC 05/13 PO 0815 Ibuprofen 600 MG Q6P PRN 05/09 1615 AC 05/12 PO 1122 Lorazepam 1.5 MG Q12 05/12 2200 AC 05/13 PO 0814 Lorazepam 1.5 MG Q8 05/12 0600 DC 05/12 PO 1325 Lorazepam 0 Q1P PRN 05/09 2015 AC 05/12 IV 1538 Melatonin 5 MG ONCE ONE 05/13 0030 DC 05/13 PO 05/13 0031 0038 Methylphenidate HCl 10 MG TID 05/09 1011 AC 05/13 PO 0822 Multivitamins 1 TAB DAILY 05/11 1000 AC 05/13 PO 0815 Thiamine HCl 100 MG DAILY 05/11 1000 AC 05/13 PO 0815 Assessment/Plan Assessment: 41-year-old man with past medical history significant for attention deficit hyperactivity disorder, alcohol dependence, history of depression, history of narcotic dependence on methadone, came to emergency department for alcohol and Methadone detox. Patient has about 2 weeks of Alcohol intake, 100% vodka. Symptoms of tremors. Serum Alcohol level 406. No previous history of DT, detox or withdrwal seizures - Vitals Q Shift - CIWA Protocol showed highest CIWA scores of 0, 0,0 ,0. Stable for discharge, scripts sent to [facility]. - Banana Bag in D5NS discontinued - Replete Lytes - Give Multivitamins, B12 and Folate - Psychiatry consult - Social work consult Chronic narcotic dependence on methadone Spoke with patient and patient's at length about inpatient methadone detox. Patient has been trying to detox himself buying methadone off the streets. After discussing with psychiatry was decided that we will hold off on methadone inpatient given patient's high risk and noncompliance. Transaminitis Secondary to alcohol intake. Patient counseled about effects of alcohol Pancytopenia Likely transient mild myelosuppression secondary to alcohol intake. Heparin subcutaneous and be discontinued. Alps for DVT prophylaxis Patient is on subcutaneous heparin for DVT prophylaxis Patient is full code Patient is on regular diet Patient is on pain management Problem List: 1. AC (acromioclavicular) joint arthritis 2. Alcohol intoxication 3. Methadone use disorder, mild 4. Alcohol withdrawal delirium Pain Ratin Pain Location: No Pain Pain Goal: Remain pain free Pain Plan: Tylenol PRN Tomorrow's Labs & Rationales: No Labs JERRELL CHURCHILL 05/13/17 0922: Attending Review Statement Attending Statement Attending MD Statement: examined this patient, discuss w/resident/PA/HAZARDOUS SUBSTANCES SCIENTIST, agreed w/resident/PA/HAZARDOUS SUBSTANCES SCIENTIST, discussed with family, reviewed EMR data (avail), discussed with nursing, discussed with case mgmt, reviewed images, amended to note Attending Assessment/Plan: 41 o/m with alcohol abuse comes with alcohol intoxication JE 400s in admission, ativan protocol as per CIWA, clonidine prn for bp control, thiamine . folic acid , Psychiatry consult, Social work consulted. gi/dvt prophyalxis full code. Patient clincally better. Patient asking for methdaone. f/u o/p PCP. anticipate d/c today.
[2017-05-13 08:00] VITALS: BP 164/94
[2017-05-13 10:11] VITALS: BP 140/82
[2017-05-13] MEDS ORDERED: FOLIC ACID1 M1 PO (10:51)
[2017-05-13] MEDS ORDERED: ONE DAILY MULT1 EAC2 PO (10:51)
[2017-05-13] MEDS ORDERED: VITAMIN B-1100 MG PO (10:51)
[2017-05-13] MEDS ORDERED: VYVANSE60 M1 PO (12:23)
[2017-05-13] MEDS ORDERED: FLUOXETINE HCL20 M2 PO (12:23)
--- NOTE | 2017-05-13 12:28 | Event Note ---
Event Note Event Note: S: Patient requesting for script for home medications. B: Patient states that he is out of his medications routinely takes home. A/R: Spoke with the attending physician who said it was fine for us to give the patient some medications till he can follow up with his PCP. We gave him a 3 day supply of fluoxetine and a three-day supply of this Lisdexamfetamine
== END 2017-05-13 12:37 | DRG 773 ==
LOC: ERH 00:52 → ERHI 12:06 → 2NA 12:06 → ENRESERV 12:50 → ENTRNSPT 13:28 → EDTRNSPTSTS 13:37 → CMPTRNSPT 13:47 → 2NA 13:52 → ENPENDDIS 05-13 11:12 → 2NA 05-13 12:37
PROVIDERS: Emergency Medicine; Student in an Organized Health Care Education/Training Program; ADMIT Internal Medicine
DX: F10.229 Alcohol dependence with intoxication, unspecified (principal); F10.239 Alcohol dependence with withdrawal, unspecified; Y90.8 Blood alcohol level of 240 mg/100 ml or more; F90.9 Attention-deficit hyperactivity disorder, unspecified type; F32.9 Major depressive disorder, single episode, unspecified; R74.0 Nonspecific elevation of levels of transaminase and lactic acid dehydrogenase [LDH]; D61.818 Other pancytopenia; F11.23 Opioid dependence with withdrawal
CPT/HCPCS: 2NAP; 36415; 80307; 82436; 96361; 96374; 96375; G0480; J1644; J3490